=== PATIENT | female | born 1995 | race Caucasian/White ===

== ENCOUNTER 2020-01-06 12:46 | Emergency (ER) | payer OTHER ==
[~2020-01-06] VITALS: Ht 177.8 cm; Wt 74.8 kg
== END 2020-01-06 13:56 | disposition home or self-care (01) ==
LOC: ER 12:46
DX: S90.112A Contusion of left great toe without damage to nail, initial encounter (principal); W51.XXXA Accidental striking against or bumped into by another person, initial encounter
CPT/HCPCS: 73630; 99283-25